=== PATIENT | male | born 1955 | race Caucasian/White ===

== ENCOUNTER 2021-06-25 05:25 | Day surgery (SDC) | payer OTHER ==
[2021-06-21 13:03] VITALS: BMI 21.7
[2021-06-25] MEDS ORDERED: LIDOCAINE HCL 1%, 10 MG/ML (20ML VIAL) ONE (10:44)
[2021-06-25] MEDS ORDERED: BUPIVACAINE HCL/PF 0.5% (5MG/ML) 10 ML VIAL ONE ×2 (10:44→10:45)
[2021-06-25] MEDS ORDERED: MIDAZOLAM HCL 2 MG/2 ML SINGLE DOSE VIAL ONE (11:21)
[2021-06-25] MEDS ORDERED: ceFAZolin SODIUM 1 GM VIAL IVPB ONE (11:45)
[2021-06-25] MEDS ORDERED: LIDOCAINE HCL 1%, 10 MG/ML (20ML VIAL) NR ONE ×2 (11:52)
[2021-06-25] MEDS ORDERED: BUPIVACAINE HCL/PF 0.5% (5MG/ML) 10 ML VIAL NR ONE ×2 (11:52)
[2021-06-25] MEDS ORDERED: SUCCINYLCHOLINE CHLORIDE 200 MG/10 ML SYRINGE ONE (12:01)
[2021-06-25] MEDS ORDERED: LIDOCAINE HCL 2% JELLY (5 ML/TUBE) ONE (12:38)
[2021-06-25] MEDS ORDERED: LIDOCAINE HCL/PF 2% SDV 5ML VIAL ONE (12:38)
[2021-06-25] MEDS ORDERED: ROCURONIUM BROMIDE 50 MG/5 ML SYRINGE ONE (12:54)
[2021-06-25 17:43] VITALS: BP 100/60; PULSE 60; TEMP 98.1
== END 2021-06-25 17:50 | disposition home or self-care (01) ==
LOC: JASU-SURG 05:25
PROVIDERS: ATTEND Surgery
PROC: 0YU50JZ Supplement Right Inguinal Region with Synthetic Substitute, Open Approach (ICD-10-PCS; principal; 2021-06-25 11:28)
DX: K40.90 Unilateral inguinal hernia, without obstruction or gangrene, not specified as recurrent (principal)
CPT/HCPCS: 94760

== ENCOUNTER 2024-02-24 10:39 | Emergency (ER) | payer OTHER ==
[2024-02-24 11:08] VITALS: TEMP 97.7; BMI 14.1
[2024-02-24] MEDS: SODIUM CHLORIDE 1,000 ML IV STA (11:44)
[2024-02-24 11:53] LABS: BASO % 0.3 % (0-2.0); EOS % 0.4 % (0-4.5); HEMATOCRIT 35.3 % (35.4-49); HEMOGLOBIN 11.8 GM/dL (11.7-16.9); MCH 27.8 pg (25.7-33.7); MCHC 33.4 g/dl (32.0-35.9); MEAN CELL VOLUME 83.3 fl (80-96); MEAN PLT VOLUME 7.5 fl (7.5-11.1); MONO % 5.8 % (3.8-10.2); NEUT % 86.5 % (42.8-82.8); PLATELET COUNT 479 10^3/uL (134-434); RBC 4.24 M/mm3 (4.00-5.60); RDW 16.2 % (11.9-15.9); WHITE BLOOD COUNT 12.6 K/mm3 (4.0-10.0)
[2024-02-24 12:00] LABS: INR 1.13 (0.83-1.09)
[2024-02-24 12:02] LABS: ACTIVATED PTT 30.7 SECONDS (25.2-36.5)
[2024-02-24 12:13] LABS: POTASSIUM 4.6 mmol/L (3.5-5.1)
[2024-02-24 12:15] LABS: CALCIUM 11.1 mg/dL (8.5-10.1)
[2024-02-24 12:16] LABS: ALBUMIN 2.8 g/dl (3.4-5.0); BLOOD UREA NITROGEN 36.1 mg/dL (7-18); MAGNESIUM 2.3 mg/dL (1.8-2.4)
[2024-02-24 12:19] LABS: CREATININE 0.9 mg/dL (0.55-1.3)
[2024-02-24 12:20] LABS: BILIRUBIN,TOTAL 0.5 mg/dL (0.2-1); TOT PROT 7.6 g/dl (6.4-8.2)
[2024-02-24 13:24] LABS: POTASSIUM 4.6 mmol/L (3.5-5.1)
[2024-02-24 13:26] LABS: CALCIUM 9.9 mg/dL (8.5-10.1)
[2024-02-24 13:27] LABS: ALBUMIN 2.4 g/dl (3.4-5.0); BLOOD UREA NITROGEN 33.5 mg/dL (7-18)
[2024-02-24 13:30] LABS: CREATININE 0.8 mg/dL (0.55-1.3)
[2024-02-24 13:32] LABS: BILIRUBIN,TOTAL 0.3 mg/dL (0.2-1); TOT PROT 6.5 g/dl (6.4-8.2)
[2024-02-24] MEDS: AZITHROMYCIN IVPB 500 MG in DEXTROSE 5%-WATER - 250 ML IVPB ONE (14:30)
[2024-02-24] MEDS ORDERED: AZITHROMYCIN IVPB 500 MG/250 ML BAG IVPB ONE (14:37)
[2024-02-24] MEDS ORDERED: CEFTRIAXONE 1 GM/50 ML BAG ONE (14:37)
[2024-02-24] MEDS: CEFTRIAXONE 1,000 MG in DEXTROSE 5%-WATER - 50 ML IVPB ONE (15:03)
[2024-02-24 16:12] VITALS: BP 118/89; PULSE 74; RESP 20
== END 2024-02-24 16:50 | disposition short-term general hospital (02) ==
LOC: JER 10:39
PROC: 3E03329 Introduction of Other Anti-infective into Peripheral Vein, Percutaneous Approach (ICD-10-PCS; principal; 2024-02-24)
PROC: 3E03329 Introduction of Other Anti-infective into Peripheral Vein, Percutaneous Approach (ICD-10-PCS; 2024-02-24)
PROC: 3E0337Z Introduction of Electrolytic and Water Balance Substance into Peripheral Vein, Percutaneous Approach (ICD-10-PCS; 2024-02-24)
DX: R91.8 Other nonspecific abnormal finding of lung field (principal); K22.2 Esophageal obstruction; R63.4 Abnormal weight loss; Z20.822 Contact with and (suspected) exposure to COVID-19
CPT/HCPCS: 0241U-QW; 36415; 70450-TC; 70491-TC; 71045-TC-FY; 71250-TC; 72125-TC; 80053; 83735; 84443; 84484; 85025; 85610; 85730; 86850; 86900; 86901; 93005; 93010; 99285-25